=== PATIENT | female | born 1975 | race Caucasian/White ===

== ENCOUNTER → 2016-10-02 | Outpatient (CLI) | payer OTHER ==
[~2016-10-02] MED LIST: OXYC-57 PO; TAMS0.4C38 PO
--- NOTE | 2016-10-02 14:52 | DIAGNOSTIC IMAGING REPORT ---
KUB CLINICAL HISTORY: N20.0 [id number] COMPARISON STUDY: 11/16/2015 FINDINGS: There is scattered stool within the colon. The renal shadows are partially obscured. No renal calculi are visualized. There is indwelling IUD. There is no pathologic bowel dilatation. Pelvic basin calcifications remain in similar orientation the prior study, and likely represent phleboliths. IMPRESSION: No urinary tract calculi are visualized on conventional radiographic evaluation Electronically signed by: Tomasz Martins M.D. 10/02/2016 2:50 PM Dictated Date/Time: 10/02/2016 2:49 PM
== END | disposition home or self-care (01) ==
LOC: C.RAD 14:33
PROVIDERS: ATTEND Nurse Practitioner Family
DX: N20.0 Calculus of kidney (principal)